=== PATIENT | female | born 1990 | race African-American/Black ===

== ENCOUNTER 2023-07-15 16:46 | Emergency (ER) | payer BC, MEDICAID ==
[~2023-07-15] VITALS: Ht 167.6 cm; Wt 82.0 kg
[2023-07-15 16:51] VITALS: O2SAT 99
[2023-07-15 17:17] VITALS: BP 122/84; PULSE 88; RESP 16; TEMP 98.6
== END 2023-07-15 17:18 | disposition home or self-care (01) ==
LOC: ER 16:46
DX: S13.4XXA Sprain of ligaments of cervical spine, initial encounter (principal); V49.49XA Driver injured in collision with other motor vehicles in traffic accident, initial encounter; Y93.89 Activity, other specified; Y92.89 Other specified places as the place of occurrence of the external cause; Y99.8 Other external cause status
CPT/HCPCS: 99283